=== PATIENT | male | born 1935 | race Caucasian/White ===

== ENCOUNTER 2023-04-16 11:00 | Outpatient (OUT) | payer MEDICARE, OTHER, SELFPAY ==
--- NOTE | 2023-04-16 | XR_ITS ---
[address] [address] Patient Name: GINNY REINA MRN: [id number] date: 1935 Sex: M Assigned Patient Location: RAD Current Patient Location: [facility] Accession/Order Number: [id number] Exam Date: 04/16/2023 11:40 Report Date: 04/16/2023 12:10 At the request of: HEAVEN LEW Procedure: XR foot RT min 3V EXAM: XR foot RT min 3V HISTORY: RIGHT FOOT PAIN COMPARISON: None. TECHNIQUE: 3 views FINDINGS/IMPRESSION: No acute fracture or dislocation. 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 Mild soft tissue swelling. Electronically authenticated by: KOREY NULL Date: 04/16/2023 12:10
== END 2023-04-16 15:39 | disposition home or self-care (01) ==
LOC: RAD 04-17 12:54
PROVIDERS: Family Provider Internal Medicine; Visit Provider Podiatrist Foot & Ankle Surgery
DX: M79.671 Pain in right foot (principal)
CPT/HCPCS: 73630